=== PATIENT | female | born 1975 | race Caucasian/White ===

== ENCOUNTER 2022-03-03 14:58 | Emergency (ER) | payer OTHER ==
[~2022-03-03] VITALS: Ht 152.4 cm; Wt 86.2 kg
[2022-03-03 15:55] VITALS: BP 138/72
[2022-03-03 17:29] LABS: BILIRUBIN,URINE NEGATIVE (NEGATIVE); UROBILINOGEN,URINE 0.2 E.U./dL (0.2)
[2022-03-03 17:37] LABS: BASOPHIL % 0.2 % (0.0-0.2); EOSINOPHIL % 0.1 % (0.0-5.0); LYMPHOCYTES # 2.31 10^3/uL1 (1.0-4.8); LYMPHOCYTES % 24.9 % (24.0-44.0); MEAN CORP HGB 29.8 pg (26-34); MONOCYTES # 0.8 10^3/uL (0.3-0.8); MONOCYTES % 8.8 % (5.0-12.0); NEUTROPHIL # 6.1 10^3/uL (1.8-7.7); NEUTROPHILS % 65.6 % (41.0-85.0); PLATELET COUNT 299 10^3/uL (150-400); RED CELL DISTRIBUTION WIDTH 13.3 % (11.5-14.5)
--- NOTE | 2022-03-03 17:37 | ER.PDOC ---
General Chief Complaint: Abdomen Pain Stated Complaint: ABD PAIN Time seen by MD: 17:00 Source: patient Exam Limitations: no limitations History of Present Illness Initial Comments 46-year-old female comes in with diffuse abdominal pain. The pain is 6/10. Diffuse. Some nausea but no vomiting. No fever. No diarrhea. No burning upon urination. She did not take any medication for this at home. Symptoms not associate with activity. Vital Signs First Vital Signs Date Time Temp Pulse Resp B/P (MAP) Pulse Ox O2 Delivery O2 Flow Rate FiO2 03/03/22 15:55 98.5 69 18 03/03/22 15:55 94 03/03/22 15:55 138/72 (94) Room Air* 0 21 Last Vital Signs Date Time Temp Pulse Resp B/P (MAP) Pulse Ox O2 Delivery O2 Flow Rate FiO2 03/03/22 15:55 98.5 69 18 138/72 (94) 94 Room Air* 0 21 Past Medical History Medical History: hypertension Surgical History: cholecystectomy, hysterectomy, tubal LMP (females 10-50): N/A Not applicalbe Family History Significant Family History: no pertinent family hx Social History Smoking: non-smoker Alcohol Use: none Drug Use: none Reviewed Nursing Reviewed: Vital Signs, Abn. Noted, Nursing Assessment Constitutional: denies no symptoms reported, denies see HPI, denies chills, denies diaphoresis, denies fever, denies malaise, denies weakness, denies other EENTM: denies no symptoms reported, denies see HPI, denies eye pain, denies blurred vision, denies tearing, denies double vision, denies ear pain, denies ear discharge, denies nose pain, denies nose congestion, denies throat pain, denies throat swelling, denies mouth pain, denies mouth swelling, denies other Respiratory: denies no symptoms reported, denies see HPI, denies cough, denies orthopnea, denies shortness of breath, denies SOB with exertion, denies SOB at rest, denies stridor, denies wheezing, denies other Cardiovascular: denies no symptoms reported, denies see HPI, denies chest pain, denies edema, denies irregular heart rate, denies lightheadedness, denies palpitations, denies syncope, denies other Gastrointestinal: denies no symptoms reported, denies see HPI, denies abdomen distended; abdominal pain; denies blood streaked bowels, denies constipated, denies diarrhea, denies difficulty swallowing; nausea; denies poor appetite, denies poor fluid intake, denies rectal bleeding, denies vomiting, denies other Genitourinary: denies no symptoms reported, denies see HPI, denies burning, denies dysuria, denies discharge, denies frequency, denies flank pain, denies hematuria, denies incontinence, denies pain, denies urgency, denies other Musculoskeletal: denies no symptoms reported, denies see HPI, denies back pain, denies gout, denies joint pain, denies joint swelling, denies muscle pain, denies muscle stiffness, denies neck pain, denies other Skin: denies no symptoms reported, denies see HPI, denies change in color, denies change in hair/nails, denies dryness, denies lesions, denies lumps, denies rash, denies other Psychiatric/Neurological: denies no symptoms reported, denies see HPI, denies anxiety, denies depressed, denies emotional problems, denies headache, denies numbness, denies paresthesia, denies pre-existing deficit, denies seizure, denies tingling, denies tremors, denies weakness, denies other Endocrine: denies no symptoms reported, denies see HPI, denies excessive sweating, denies flushing, denies intolerance to cold, denies intolerance to heat, denies increased hunger, denies increased thrist, denies increased urine, denies unexplained weight gain, denies unexplaned weight loss, denies other Hematologic/Lymphatic: denies no symptoms reported, denies see HPI, denies anemia, denies blood clots, denies easy bleeding, denies easy bruising, denies swollen glands, denies other All Other Systems: Reviewed and Negative Physical Exam General Appearance: No Apparent Distress HEENT: PERRL/EOMI, Normal ENT Inspection Neck: Non-Tender, Full Range of Motion Respiratory: chest non-tender, lungs clear, normal breath sounds, no respiratory distress, no accessory muscle use Cardiovascular: Normal Peripheral Pulses, Regular Rate, Rhythm, No Edema, No Gallop, No JVD, No Murmur Gastrointestinal: Normal Bowel Sounds, No Organomegaly, No Pulsatile Mass, Tenderness, Other (Pain is diffuse. No rebound.) Back: Normal Inspection Extremities: Normal Range of Motion, Non-Tender, Normal Inspection, No Pedal Edema, No Calf Tenderness Neurologic/Psychiatric: deliverer food II-XII NML as Tested, No Motor/Sensory Deficits, Alert, Normal Mood/Affect, Oriented x 3 Skin: Normal Color, Warm/Dry Results/Orders Results/Orders Orders - HARDEEP BAKER MD Cbc With Auto Diff (03/03/22 17:20) Comprehensive Metabolic Panel (03/03/22 17:20) Amylase (03/03/22 17:20) Lipase (03/03/22 17:20) Helicobacter Pylori (03/03/22 17:20) PT (03/03/22 17:20) Partial Thromboplastin Time. (03/03/22 17:20) Urinalysis (03/03/22 17:20) Urine Culture (03/03/22 16:10) Vital Signs Date Time Temp Pulse Resp B/P (MAP) Pulse Ox O2 Delivery O2 Flow Rate FiO2 03/03/22 15:55 98.5 69 18 138/72 (94) 94 Room Air* 0 21 03/03/22 15:55 98.5 69 18 94 03/03/22 15:55 98.5 69 18 Laboratory Tests Test 03/03/22 17:33 White Blood Count 9.3 10^3/uL (4.5-11.0) Red Blood Count 5.37 10^6/uL (4.00-5.20) H Hemoglobin 16.0 g/dL (12.0-15.0) H Hematocrit 49.8 % (36.0-46.0) H Mean Corpuscular Volume 92.7 fL (78-100) Mean Corpuscular Hemoglobin 29.8 pg (26-34) Mean Corpuscular Hemoglobin Concent 32.1 g/dL (33-36.5) L Red Cell Distribution Width 13.3 % (11.5-14.5) Platelet Count 299 10^3/uL (150-400) Mean Platelet Volume 9.7 fL (7.8-11.0) Neutrophils (%) (Auto) 65.6 % (41.0-85.0) Lymphocytes (%) (Auto) 24.9 % (24.0-44.0) Monocytes (%) (Auto) 8.8 % (5.0-12.0) Neutrophils # (Auto) 6.1 10^3/uL (1.8-7.7) Lymphocytes # (Auto) 2.31 10^3/uL1 (1.0-4.8) Monocytes # (Auto) 0.8 10^3/uL (0.3-0.8) Absolute Immature Granulocyte (auto 0.04 10^3 u/L (0-2) Absolute Eosinophils (auto) 0.0 10^3/uL (0.0-0.2) Immature Granulocytes % 0.40 % (0.00-0.50) Eosinophils % 0.1 % (0.0-5.0) Basophils % 0.2 % (0.0-0.2) Basophils # 0.0 10^3/uL (0.0-0.1) Prothrombin Time 10.2 SEC (9.1-11.5) Prothrombin Time INR (Non-Therap) 1.0 Activated Partial Thromboplast Time 26.4 SEC (22.5-33.1) Urine Collection Type CCMS Urine Color YELLOW Urine Appearance HAZY Urine Bilirubin NEGATIVE (NEGATIVE) Urine Ketones NEGATIVE (NEGATIVE) Urine Specific [place] 1.010 (1.005-1.030) Urine pH 5.0 (4.5-8.0) Urine Protein NEGATIVE (NEGATIVE) Urine Urobilinogen 0.2 E.U./dL (0.2) Urine Nitrate NEGATIVE (NEGATIVE) Urine Leukocyte Esterase NEGATIVE (NEGATIVE) Urine Glucose (Auto)(UA) NEGATIVE (NEGATIVE) Urine Blood TRACE-INTACT (NEGATIVE) H Urine RBC 0-2 RBC/HPF (NONE SEEN) Urine WBC 0-2 WBC/HPF (0-2) Urine Squamous Epithelial Cells FEW (<=FEW) Urine Bacteria FEW (NONE SEEN) H Sodium Level 140 mmol/L (132-145) Potassium Level 4.1 mmol/L (3.6-5.2) Chloride Level 101.0 mmol/L (96-109) Carbon Dioxide Level 27.2 mmol/L (20.0-32) Anion Gap 15.9 Blood Urea Nitrogen 9 mg/dL (7-18) Creatinine 0.88 mg/dL (0.59-1.40) Estimated GFR () 83.3 (>/=60) Est GFR (CKD-EPI)(Non-Afr [place]) 68.9 (>/=60) BUN/Creatinine Ratio 10.0 Glucose Level 96 mg/dL (70-110) Calcium Level 8.9 mg/dL (8.4-10.5) Total Bilirubin 0.4 mg/dL (0.2-1.0) Aspartate Amino Transferase (AST) 23 U/L (0-35) Alanine Aminotransferase (ALT) 22 U/L (12-78) Alkaline Phosphatase 82 U/L (50-136) Total Protein 7.5 g/dL (6.4-8.2) Albumin 3.5 g/dL (3.4-5.0) Globulin 4.0 Albumin/Globulin Ratio 0.875 Amylase Level 58 U/L (25-115) Lipase 236 U/L (114-286) Helicobacter pylori Screen NEGATIVE (NEGATIVE) Progress Progress Patient here with no vomiting. No diarrhea. No fever. Vital signs unremarkable. Labs unremarkable. At this point she can be discharged home she can follow-up with her doctor. ER DEPART Departure Time of Disposition: 18:13 Disposition: 01 HOME / SELF CARE / HOMELESS Impression: Primary Impression: Abdominal pain Condition: Improved Patient Instructions: Abdominal Pain Referrals: PCP,UNKNOWN (PCP) PRIMARY CARE PROVIDER Additional Instructions: Avoid spicy and fatty meals Pepcid [id number] twice a day for 10 days Pepto-Bismol [id number] as needed for abdominal discomfort Eat more fiber Follow-up with your doctor soon as possible Return to the hospital if any new symptoms develop Duration or Time Spent with Pa: 25 HARDEEP BAKER MD Mar 03, 2022 17:37
[2022-03-03 17:55] LABS: CARBON DIOXIDE 27.2 mmol/L (20.0-32)
== END 2022-03-03 18:24 | disposition home or self-care (01) ==
LOC: ER 14:58
DX: R10.84 Generalized abdominal pain (principal); I10 Essential (primary) hypertension; Z90.49 Acquired absence of other specified parts of digestive tract; Z90.710 Acquired absence of both cervix and uterus
CPT/HCPCS: 36415; 80053; 81001; 82150; 83690; 85025; 85610; 85730; 86677; 87086; 99283

== ENCOUNTER 2024-02-29 12:34 | Emergency (ER) | payer OTHER ==
[~2024-02-29] VITALS: Ht 154.9 cm; Wt 95.7 kg
[2024-02-29 12:50] VITALS: BP 140/84; PULSE 74; RESP 18; TEMP 97.9; O2SAT 96
[2024-02-29 13:38] LABS: INFLUENZA VIRUS A ANTIGEN NEGATIVE (NEG); INFLUENZA VIRUS B ANTIGEN NEGATIVE (NEG)
[2024-02-29 14:08] VITALS: BP 136/80; PULSE 77; RESP 18; O2SAT 97
== END 2024-02-29 14:10 | disposition home or self-care (01) ==
LOC: ER 12:34
DX: J06.9 Acute upper respiratory infection, unspecified (principal); I10 Essential (primary) hypertension; Z90.49 Acquired absence of other specified parts of digestive tract; Z90.710 Acquired absence of both cervix and uterus; Z88.0 Allergy status to penicillin; Z88.2 Allergy status to sulfonamides; Z20.822 Contact with and (suspected) exposure to COVID-19
CPT/HCPCS: 87070; 87426; 87804; 87880; 99283

== ENCOUNTER 2024-06-17 00:15 | Emergency (ER) | payer OTHER ==
[~2024-06-17] VITALS: Ht 154.9 cm; Wt 86.2 kg
[2024-06-17 01:34] VITALS: BP 174/90; PULSE 69; RESP 18; TEMP 97.9; O2SAT 98
[2024-06-17] MEDS ORDERED: SOLU-MEDROL ONE ×2 (01:50→01:53)
[2024-06-17] MEDS ORDERED: DUONEB 0.5-3(2.5) MG/3 ML IH ONE (01:51)
[2024-06-17] MEDS ORDERED: TORADOL ONE (01:51)
[2024-06-17 01:53] VITALS: PULSE 86; RESP 18; O2SAT 96
[2024-06-17] MEDS ORDERED: WATER 20 ML ONE (01:54)
[2024-06-17] MEDS: DUONEB 0.5-3(2.5) MG/3 ML IH STA (01:56)
[2024-06-17] MEDS: TORADOL IM STA (01:59)
[2024-06-17 02:00] VITALS: PULSE 75; RESP 18; O2SAT 94
[2024-06-17] MEDS: SOLU-MEDROL IM STA (02:00)
[2024-06-17] MEDS ORDERED: ALBU0.63 NEB (02:14)
[2024-06-17] MEDS ORDERED: MICO14CR2 TP (02:14)
[2024-06-17] MEDS ORDERED: KETO10TA PO (02:14)
[2024-06-17] MEDS ORDERED: CEFP200T PO (02:14)
[2024-06-17 02:21] VITALS: BP 144/73; PULSE 75; RESP 18; TEMP 97.9; O2SAT 98
== END 2024-06-17 02:25 | disposition home or self-care (01) ==
LOC: ER 00:15
DX: H66.93 Otitis media, unspecified, bilateral (principal); B34.9 Viral infection, unspecified; I10 Essential (primary) hypertension; F17.210 Nicotine dependence, cigarettes, uncomplicated; Z90.49 Acquired absence of other specified parts of digestive tract; Z90.710 Acquired absence of both cervix and uterus; Z88.0 Allergy status to penicillin; Z88.2 Allergy status to sulfonamides
CPT/HCPCS: 99284; 96372; 94640; J1885; J2919 ×2; A4216; J2930

== ENCOUNTER 2024-11-29 22:58 | Emergency (ER) | payer OTHER ==
[~2024-11-29] VITALS: Ht 154.9 cm; Wt 96.3 kg
[~2024-11-29 22:58] MED LIST: ALBU0.63 NEB; CEFP200T PO; KETO10TA PO; MICO14CR2 TP
[2024-11-29 23:13] VITALS: BP_SYST 152; BP_DIAS 20; BP_DIAS 65; PULSE 88; RESP 20; TEMP 37.11408; O2SAT 93
[2024-11-29 23:20] VITALS: BP 152/20; PULSE 88; RESP 20; TEMP 98.8; O2SAT 93
[2024-11-29] MEDS ORDERED: ALBU18HF IH (23:34)
[2024-11-29] MEDS ORDERED: AZIT500T4 PO (23:34)
[2024-11-29] MEDS ORDERED: METH4TAB2 PO (23:34)
[2024-11-29] MEDS ORDERED: BENZ-14 PO (23:34)
[2024-11-29] MEDS ORDERED: NEURONTIN ONE (23:39)
[2024-11-29] MEDS ORDERED: ZITHROMAX PO ONE (23:40)
[2024-11-29] MEDS ORDERED: FIORICET ONE (23:46)
[2024-11-29 23:51] VITALS: BP 128/58; PULSE 85; RESP 20; TEMP 98.8; O2SAT 93
[2024-11-29] MEDS: NEURONTIN PO STA (23:52)
[2024-11-29] MEDS: FIORICET PO STA (23:52)
[2024-11-29] MEDS: ZITHROMAX PO STA (23:53)
== END 2024-11-30 | disposition home or self-care (01) ==
LOC: ER 22:58
DX: J20.9 Acute bronchitis, unspecified (principal); E78.00 Pure hypercholesterolemia, unspecified; I10 Essential (primary) hypertension; F17.210 Nicotine dependence, cigarettes, uncomplicated; Z90.49 Acquired absence of other specified parts of digestive tract; Z90.710 Acquired absence of both cervix and uterus; Z96.653 Presence of artificial knee joint, bilateral; Z88.0 Allergy status to penicillin; Z88.2 Allergy status to sulfonamides
CPT/HCPCS: 99284; Q0144